=== PATIENT | male | born 1995 | race Caucasian/White ===

== ENCOUNTER 2022-07-04 08:53 | Day surgery (SDC) | payer BC, MEDICAID, SELFPAY ==
[2022-07-04 09:56] VITALS: BP 136/91; PULSE 71; RESP 18; TEMP 36.5; O2SAT 99; BMI 32.5
[2022-07-04] MEDS: sodium chloride 0.9% 1,000 ML 30 ML IV (10:20)
--- NOTE | 2022-07-04 10:55 | P.ANESASSM_ITS ---
Pre-Anesthetic Assessment Height/Weight: Height 1.63 m Weight 86.183 kg Temp Pulse Resp BP Pulse Ox O2 Del Method 97.7 F 71 18 136/91 99 07/04/22 09:56 07/04/22 09:56 07/04/22 09:56 07/04/22 09:56 07/04/22 09:56 07/04/22 09:56 Operation Date: 07/04/22 11:00 Proposed Procedures p EGD 96417,K21.9(Not Applicable) - Omid Salamanca MD Familial anesthetic complications: Hx obtained through telephone vice president diversity through our hospital radiotelephone technical operator. Cryptographic Vulnerability Analyst, Carly # [id number]. No hx of anesthetic complications in patient or family Was Beta Trung taken within 24 hours: N/A Was Clonidine taken within 24 hours: N/A Last intake: Intake Last Liquid Date 07/03/22 Last Liquid Time 18:00 Last Solid Date 07/03/22 Last Solid Time 18:00 Social No alcohol and No tobacco Exam alert, oriented x 3, clear to auscultation bilaterally and regular rate & rhythm Airway Submandibular: within normal limits Cervical ROM: within normal limits Mallampati: Class I Comments: Comments: missing teeth History/ROS No significant complaints Pulmonary None reported CV/HEM None reported None reported Hepatic None reported GI None reported Metabolic None reported Musc/skel None reported Neuropsych None reported Anesthetic Plan ASA status: 1 Anesthesia: Anesthesia Evaluation, General and MAC Other: I discussed with the patient through the vice president diversity the risks, goals, and benefits of MAC and general anesthesia. We discussed spectrum of MAC anesthesia including conversion to general as well as possibility of recall of intraoperative stimuli including discomfort/pain. We discussed risk of catastrophic complications including stroke, TN, aspiration, as well as risk of corneal abrasion, intubation. Patient agrees to proceed with MAC. Risk of > 500 ml blood loss (7ml/kg in children): No Medications/Allergies Home Medications Medication Instructions Recorded Confirmed Last Taken Type pantoprazole 20 mg tablet,delayed 20 mg PO DAILY 07/03/22 07/04/22 07/03/22 History release Allergies Allergy/AdvReac Type Severity Reaction Status Date / Time No Known Allergies Allergy Unverified 07/03/22 13:10 Current Medications Generic Name Dose Route Start Last Admin Trade Name Freq PRN Reason Stop Dose Admin Sodium Chloride 1,000 mls @ 30 mls/hr 07/04/22 09:45 07/04/22 10:20 Sodium Chloride 0.9% IV 07/05/22 09:44 30 mls/hr .Q24H SABRINA Administration PFSH Anesthesia Social History Smoking and tobacco status: never smoked Data Anesthesia Cardiac Studies: No Data to Display
--- NOTE | 2022-07-04 12:23 | W.PM.OPSUD ---
Surgery/Procedure H&P Update DATE OF PROCEDURE: July 04, 2022 DATE H&P PERFORMED: 07/03/22 H&P UPDATE INFORMATION: I have reviewed H&P completed within last 30 days, I have examined patient prior to procedure and No changes to prior documentation PREOP DIAGNOSIS: Acid reflux PRIMARY INDICATION FOR PROCEDURE: The same PLANNED PROCEDURE: Operation Date: 07/04/22 11:00 Proposed Procedures p EGD 20606,K21.9(Not Applicable) - Omid Salamanca MD
[2022-07-04 12:40] VITALS: BP 120/70; PULSE 76; RESP 14; TEMP 36.3; O2SAT 96
[2022-07-04 12:55] VITALS: BP 123/75; PULSE 68; RESP 18; O2SAT 96
--- NOTE | 2022-07-04 13:20 | PC.NURSE ---
1315. Dr Salamanca spoke with the patient via [place] Island[place] earring maker over the phone. Post op instructions given to patient by me also via earring maker on the phone.
--- NOTE | 2022-07-04 14:44 | ANE.PACU2 ---
Inpatient post-anesthesia follow up: Airway intact: Yes Vital signs: Temperature 97.4 F Pulse Rate 68 Respiratory Rate 18 Blood Pressure 123/75 Pulse Oximetry 96 Oxygen Delivery Me thod Room Air Oxygen Flow Rate Fraction of Inspir ed Oxygen Hydration adequate: Yes Nausea and vomiting: No Pain level: 1 Mental status: Baseline
== END 2022-07-04 13:15 | disposition home or self-care (01) ==
PROVIDERS: PCP Family Medicine; Visit Provider Surgery
PROC: 0DJ08ZZ Inspection of Upper Intestinal Tract, Via Natural or Artificial Opening Endoscopic (ICD-10-PCS; CPT 43235; principal; 2022-07-04 11:00)
DX: K21.9 Gastro-esophageal reflux disease without esophagitis (principal); K29.50 Unspecified chronic gastritis without bleeding
CPT/HCPCS: 43239; 88305; 88342; J2704; J7030

== ENCOUNTER 2022-10-04 22:32 | Emergency (ER) | payer BC, MEDICAID, SELFPAY ==
[2022-10-04 22:38] VITALS: BP 158/97; PULSE 83; RESP 16; TEMP 36.6; O2SAT 98; BMI 34.0
--- NOTE | 2022-10-04 22:41 | ED_ITS ---
HPI - Dental/Oral General: Chief complaint: Dental/Oral Stated complaint: tooth pain Time Seen by Provider: 10/04/22 22:41 History of Present Illness: 27-year-old male patient comes in with left upper jaw pain. Patient has very poor dentition. Patient has multiple repairs to the molars of the teeth but there is significant decay. Patient speaks minimal Guamanian. Patient reports no routine medications or chronic medical problems. Review of Systems ENMT: Reports: dental pain PFSH ED PFSH: Social History Smoking and tobacco status: never smoked Physical Exam Const: COMMON NORMALS: alert HENMT: COMMON NORMALS: normocephalic HEAD & SCALP: normocephalic MOUTH: other (Poor dentition, multiple caries, dental tenderness left upper jaw) Neuro: SENSORIUM/ORIENTATION: Yes alert Skin: COMMON NORMALS: turgor normal GENERAL SKIN EXAM: turgor normal Course Vital Signs: Vital signs: Vital Signs Temperature 97.8 F 10/04/22 22:38 Pulse Rate 83 10/04/22 22:38 Respiratory Rate 16 10/04/22 22:38 Blood Pressure 158/97 10/04/22 22:38 Pulse Oximetry 98 10/04/22 22:38 Oxygen Delivery Me thod 10/04/22 22:38 MDM - Dental/Oral Medical Decision Making 27-year-old male patient comes in today for complaints of dental pain. On exam patient has poor dentition with multiple decay and poor repair of molars. Patient reports tenderness on percussion of the second left upper molar. Differential diagnosis includes fracture, dental abscess, dental caries, odontalgia. No signs of fracture or injury is noted. Patient appears to have significant dental caries with a secondary dental infection. Patient was given antibiotics will be continued on ibuprofen and clindamycin. Discharge Plan Discharge Patient Disposition: Home Clinical Impression: Dental abscess, Dental caries Condition: Stable Prescriptions: New clindamycin HCl 300 mg capsule 300 mg PO Q6H 7 Days Qty: 28 0RF ibuprofen 600 mg tablet 600 mg PO Q6H PRN (Reason: pain) Qty: 30 0RF No Action pantoprazole 20 mg tablet,delayed release (DR/EC) 20 mg PO DAILY amoxicillin 500 mg capsule 1,000 mg PO BID 14 Days Qty: 56 0RF clarithromycin 500 mg tablet 500 mg PO TID 14 Days Qty: 42 0RF pantoprazole [Protonix] 40 mg tablet,delayed release (DR/EC) 40 mg PO BID 14 Days Qty: 28 0RF Discharge Orders: Discharge ED (Routine); Ordered 10/04/22 Ordered By: Derek Edwards Referrals: Candi Hoskins MD [Primary Care Provider] - Discharge Diet: Usual diet Discharge Activity: Increase activity as tolerated Patient Instructions: Toothache (ED) Activity Restrictions/Additional Instructions: Follow-up with dentist for definitive care. Take antibiotics as directed. Use ibuprofen and acetaminophen to control pain. Use ice and heat for further pain relief. Return to ER for new concerns. Coding Level of Care Code ED Health And Safety Trainer for Dino Rosenberg
[2022-10-04] MEDS: HYDROcodone-acetaminophen 5-325 mg Tablet 1 TAB PO (22:58)
[2022-10-04] MEDS: ketorolac 10 mg Tablet PO (22:59)
[2022-10-04] MEDS: clindamycin 150 mg Capsule 300 MG PO (22:59)
== END 2022-10-04 23:03 | disposition home or self-care (01) ==
PROVIDERS: Emergency Provider Nurse Practitioner Family; PCP Family Medicine
DX: K02.9 Dental caries, unspecified (principal); K04.7 Periapical abscess without sinus
CPT/HCPCS: 99283